=== PATIENT | male | born 1975 | race Caucasian/White ===

== ENCOUNTER 2017-12-20 11:47 | Emergency (ER) | payer MEDICAID, OTHER ==
[~2017-12-20] VITALS: Ht 185.4 cm; Wt 72.6 kg
--- NOTE | 2017-12-20 12:02 | NUR ---
Both hands were cleaned with soap and water thoroughly. Patient discharged to home in stable conditon. Written and verbal after care instructions given to patient. Patient verbalizes understanding of instructions.
== END 2017-12-20 12:03 | disposition home or self-care (01) ==
LOC: ER 11:54 → EDBD 11:54 → ER 12:03
DX: L03.012 Cellulitis of left finger (principal)
CPT/HCPCS: A4663

== ENCOUNTER 2018-08-07 20:08 | Emergency (ER) | payer OTHER ==
[~2018-08-07] VITALS: Ht 188 cm; Wt 81.6 kg
--- NOTE | 2018-08-07 22:59 | NUR ---
Patient given written and verbal discharge instructions. Patient verbalizes understanding of instructions. Patient is ambulatory with steady gait. Refuses offer of [facility] placement. Patient given list of available shelters in surrounding area. Patient states he will be going to his girlfriend's house. Patient signed homeless waiver form.
== END 2018-08-07 23:01 | disposition home or self-care (01) ==
LOC: ER 20:08
DX: B86 Scabies (principal); F17.200 Nicotine dependence, unspecified, uncomplicated; Z59.0 Homelessness
CPT/HCPCS: A4663

== ENCOUNTER 2018-08-18 19:00 | Emergency (ER) | payer OTHER ==
[~2018-08-18] VITALS: Ht 188 cm; Wt 81.6 kg
--- NOTE | 2018-08-18 19:09 | NUR ---
Patient ambulated with stable gait. AAOx4. Speech is clear, speaks in complete sentences. No neuro deficits. Patient came in for c/o itchiness in scalp area. No respiratory distress noted, no sob no cough. No cardiovascular distress noted. No GI/ distress. Fall precautions implemented per protocol.
--- NOTE | 2018-08-18 19:28 | NUR ---
Patient given written and verbal discharge instructions. Patient verbalizes understanding of instructions. Patient is ambulatory with stable gait. Refuses offer of assisted placement. Patient given list of available shelters in surrounding area.
== END 2018-08-18 19:30 | disposition home or self-care (01) ==
LOC: ER 19:04
DX: L29.9 Pruritus, unspecified (principal); F17.290 Nicotine dependence, other tobacco product, uncomplicated; Z59.0 Homelessness
CPT/HCPCS: A4663

== ENCOUNTER 2019-04-24 03:05 | Emergency (ER) | payer OTHER ==
[~2019-04-24] VITALS: Ht 182.9 cm; Wt 72.6 kg
[2019-04-24] MEDS ORDERED: IBUPROFEN 800 MG TABLET ONE (03:32)
[2019-04-24] MEDS ORDERED: AMOXicillin 250 MG CAPSULE ONE (03:32)
[2019-04-24] MEDS: AMOXicillin 250 MG CAPSULE PO ONE (03:38)
[2019-04-24] MEDS: IBUPROFEN 800 MG TABLET PO ONE (03:38)
--- NOTE | 2019-04-24 03:38 | NUR ---
Patient discharged to home in stable conditon. Written and verbal after care instructions given. Patient verbalizes understanding of instructions. AMBULATORY W/ STABLE GAIT ALL BELONGINGS W/ PT
[2019-04-24 03:41] VITALS: BP 136/77
== END 2019-04-24 03:41 | disposition home or self-care (01) ==
LOC: ER 03:11
DX: K08.89 Other specified disorders of teeth and supporting structures (principal); F17.200 Nicotine dependence, unspecified, uncomplicated; Z76.0 Encounter for issue of repeat prescription; Z59.0 Homelessness
CPT/HCPCS: A4663

== ENCOUNTER 2022-11-14 20:59 | Emergency (ER) | payer OTHER ==
[~2022-11-14] VITALS: Ht 188 cm; Wt 72.6 kg
--- NOTE | 2022-11-14 21:46 | NUR ---
After being triaged, patient was placed back in the waiting room due to no beds available in the ER
--- NOTE | 2022-11-14 23:24 | NUR ---
Patient placed in room 2b at this time.
--- NOTE | 2022-11-14 23:30 | NUR ---
Dr Marrero into eval patient.
--- NOTE | 2022-11-15 01:04 | NUR ---
Patient given written and verbal discharge instructions. Patient verbalizes understanding of instructions. Patient is ambulatory with steady gait. Refuses offer of [facility] placement. Patient given list of available shelters in surrounding area.
[2022-11-15 01:05] VITALS: BP 145/95
== END 2022-11-15 01:05 | disposition home or self-care (01) ==
LOC: ER 20:59
DX: S09.90XA Unspecified injury of head, initial encounter (principal); Z71.6 Tobacco abuse counseling; F17.210 Nicotine dependence, cigarettes, uncomplicated; Z59.00 Homelessness unspecified; Y04.2XXA Assault by strike against or bumped into by another person, initial encounter; Y93.89 Activity, other specified; Y92.89 Other specified places as the place of occurrence of the external cause; Y99.8 Other external cause status
CPT/HCPCS: 70450; A4663

== ENCOUNTER 2023-02-10 22:34 | Emergency (ER) | payer OTHER ==
[~2023-02-10] VITALS: Ht 188 cm; Wt 70.3 kg
[2023-02-10 23:48] VITALS: O2SAT 100
[2023-02-11 00:55] LABS: *BILIRUBIN,URIN NEGATIVE (NEGATIVE); *BLOOD, URINE NEGATIVE (NEGATIVE); *CLARITY,URINE CLEAR (CLEAR); *COLOR,URINE YELLOW (YELLOW); *KETONES,URINE NEGATIVE (NEGATIVE); *PROTEIN,URINE NEGATIVE (NEGATIVE); *UROBILINOGEN,URINE 0.2 E.U./dl (NORMAL); LEUKOCYTE ESTERASE ,URINE NEGATIVE (NEGATIVE); NITRITE, URINE NEGATIVE (NEGATIVE); PH,URINE 5.5 (5.0-8.0); UGLUCOSE NEGATIVE (NEGATIVE)
== END 2023-02-11 01:55 | disposition home or self-care (01) ==
LOC: ER 22:36
DX: R35.0 Frequency of micturition (principal); F17.210 Nicotine dependence, cigarettes, uncomplicated; Z71.6 Tobacco abuse counseling; Z59.00 Homelessness unspecified
CPT/HCPCS: A4663

== ENCOUNTER 2024-08-19 01:40 | Emergency (ER) | payer OTHER ==
[~2024-08-19] VITALS: Ht 188 cm; Wt 72.6 kg
[~2024-08-19 01:40] MED LIST: CEPH500C2 PO; D-ME473S47 PO; HC A30CR12 RC; TRIA60LO14 TP
[2024-08-19] MEDS ORDERED: CYCL5TAB PO (02:12)
[2024-08-19] MEDS ORDERED: ACETAMINOPHEN 500 MG TABLET ONE (02:24)
[2024-08-19] MEDS: ACETAMINOPHEN 500 MG TABLET PO ONE (02:33)
[2024-08-19 03:03] VITALS: BP 113/83; O2SAT 99
== END 2024-08-19 03:04 | disposition home or self-care (01) ==
LOC: ER 01:50
DX: M54.50 Low back pain, unspecified (principal); M62.838 Other muscle spasm; F17.290 Nicotine dependence, other tobacco product, uncomplicated; F20.9 Schizophrenia, unspecified; Z88.7 Allergy status to serum and vaccine; Z60.2 Problems related to living alone; W01.0XXA Fall on same level from slipping, tripping and stumbling without subsequent striking against object, initial encounter; Y93.89 Activity, other specified; Y92.89 Other specified places as the place of occurrence of the external cause; Y99.8 Other external cause status
CPT/HCPCS: A4606; A4663; A9150